=== PATIENT | female | born 1945 | race Caucasian/White ===

== ENCOUNTER → 2023-08-21 06:03 | Outpatient (REF) | payer MEDICARE, OTHER, SELFPAY ==
[2023-08-21 08:55] LABS: % Basophils 0.9 % (0-2); % Eosinophils 5.8 % (0-6); % Immature Granulocytes 0.9 % (0-0.5); % Monocytes 9.2 % (1.7-9.3); % Neutrophils 53.2 % (42.2-75.2); Absolute Eosinophils 0.3 10^3/uL (0-0.7); Absolute Lymphocytes 1.3 10^3/uL (1.2-3.4); Absolute Monocytes 0.4 10^3/uL (0.1-0.6); Absolute Neutrophils 2.3 10^3/uL (1.4-6.5); Hematocrit 34.7 % (37.0-47.0); Hemoglobin 11.4 g/dL (12.0-16.0); Mean Corp Hgb Conc. 32.9 g/dL (33.0-37.0); Mean Corpuscular Hgb 31.2 pg (27.0-31.0); Mean Corpuscular Volume 95.1 fL (81.0-99.0); Mean Platelet Volume 9.4 fL (7.4-10.4); Nucleated Red Blood Cells % 0 %; Platelet Count 221 10^3/uL (130-400); Red Blood Cell Count 3.65 10^6/uL (4.20-5.40); Red Cell Dist. Width 13.2 % (11.5-14.5); White Blood Cell Count 4.3 10^3/uL (4.8-10.8)
[2023-08-21 09:27] LABS: ALT (SGPT) 15 U/L (0-35); AST (SGOT) 23 U/L (14-36); Albumin 4.2 g/dl (3.5-5.0); Alkaline Phosphatase 48 U/L (38-126); Blood Urea Nitrogen 28 mg/dl (7-17); Calcium 9.6 mg/dl (8.4-10.2); Carbon Dioxide 21 mmol/L (22-30); Chloride 111 mmol/L (98-107); Glucose 105 mg/dl (70-99); HDL Cholesterol 67 mg/dl; LDL Cholesterol, Calculated 80 mg/dl; Potassium 4.4 mmol/L (3.5-5.1); Sodium 141 mmol/L (135-145); Total Bilirubin 0.6 mg/dl (0.2-1.3); Total Cholesterol 180 mg/dl (50-199); Triglyceride 168 mg/dl (10-149); Very Low Density Lipoprotein 33 mg/dl (0-30); eGFR 35.67
[2023-08-21 10:11] LABS: Free T3 3.04 pg/ml (2.77-5.27); Free T4 1.24 ng/dl (0.78-2.19)
[2023-08-21 10:25] LABS: TSH 1.15 uIU/ml (0.47-4.68)
[2023-08-21 11:01] LABS: Folate 6.5 ng/ml (2.76-20); Vitamin B12 723 pg/ml (239-931)
[2023-08-21 12:10] LABS: Glycohemoglobin (HgbA1c) 5.8 % (4.0-5.6)
[2023-08-23 13:41] LABS: Albumin 3.89 g/dL (3.75-5.01); Alpha 1 Globulin 0.29 g/dL (0.19-0.46); Alpha 2 Globulin 0.88 g/dL (0.48-1.05); Free Kappa Light Chains,Quant 75.97 mg/L (3.30-19.40); Free Lambda Light Chains,Quant 25.67 mg/L (5.71-26.30); IgA 573 mg/dL (68-408); IgG 660 mg/dL (768-1632); IgM 52 mg/dL (35-263); Immunofixation Electrophoresis IFE Done; Kappa/Lambda Fr Light Ratio 2.96 (0.26-1.65); Monoclonal Protein 0.68 g/dL (<=0.00)
== END ==
LOC: HWLAB 06:03
PROVIDERS: ATTENDING PHYSICIAN Internal Medicine Hematology & Oncology; FAMILY PHYSICIAN Internal Medicine
DX: D63.1 Anemia in chronic kidney disease (principal); N18.30 Chronic kidney disease, stage 3 unspecified; D51.9 Vitamin B12 deficiency anemia, unspecified; D47.2 Monoclonal gammopathy; E78.5 Hyperlipidemia, unspecified; R73.01 Impaired fasting glucose; E03.9 Hypothyroidism, unspecified
CPT/HCPCS: 36415; 80053; 80061; 82607; 82746; 82784; 83036; 83521; 84155; 84165; 84439; 84443; 84481; 85025; 86334

== ENCOUNTER → 2023-10-10 06:33 | Outpatient (REF) | payer MEDICARE, OTHER, SELFPAY ==
[2023-10-10 09:58] LABS: ALT (SGPT) 13 U/L (0-35); AST (SGOT) 21 U/L (14-36); Albumin 3.8 g/dl (3.5-5.0); Alkaline Phosphatase 60 U/L (38-126); Blood Urea Nitrogen 40 mg/dl (7-17); Calcium 9.4 mg/dl (8.4-10.2); Carbon Dioxide 22 mmol/L (22-30); Chloride 108 mmol/L (98-107); Glucose 105 mg/dl (70-99); Potassium 4.4 mmol/L (3.5-5.1); Sodium 139 mmol/L (135-145); Total Bilirubin 0.7 mg/dl (0.2-1.3); Total Protein 6.4 g/dl (6.3-8.2); eGFR 32.81
[2023-10-10 10:11] LABS: Vitamin D, 25-OH*** 64.2 ng/mL (30-80)
== END ==
LOC: HWLAB 06:33
PROVIDERS: ATTENDING PHYSICIAN Internal Medicine Rheumatology; FAMILY PHYSICIAN Internal Medicine
DX: E55.9 Vitamin D deficiency, unspecified (principal); M81.0 Age-related osteoporosis without current pathological fracture; Z79.899 Other long term (current) drug therapy
CPT/HCPCS: 36415; 80053; 82306

== ENCOUNTER → 2023-11-23 11:36 | Outpatient (REF) | payer MEDICARE, OTHER, SELFPAY | LOC: HWRAD 11:36 | PROVIDERS: ATTENDING PHYSICIAN Surgery; FAMILY PHYSICIAN Internal Medicine | DX: K40.90 Unilateral inguinal hernia, without obstruction or gangrene, not specified as recurrent (principal) | CPT/HCPCS: 72192 ==

== ENCOUNTER → 2024-02-08 13:17 | Outpatient (REF) | payer MEDICARE, OTHER, SELFPAY | LOC: HWRAD 13:17 | PROVIDERS: ATTENDING PHYSICIAN Internal Medicine | DX: M79.645 Pain in left finger(s) (principal) | CPT/HCPCS: 73140 ==

== ENCOUNTER → 2024-03-14 12:24 | Outpatient (REF) | payer MEDICARE, OTHER, SELFPAY | LOC: HWRAD 12:24 | PROVIDERS: ATTENDING PHYSICIAN Internal Medicine Rheumatology; FAMILY PHYSICIAN Internal Medicine | DX: M85.89 Other specified disorders of bone density and structure, multiple sites (principal); M81.0 Age-related osteoporosis without current pathological fracture; S32.010S Wedge compression fracture of first lumbar vertebra, sequela; Z13.820 Encounter for screening for osteoporosis | CPT/HCPCS: 77080; 77081 ==

== ENCOUNTER → 2024-04-24 06:09 | Outpatient (REF) | payer MEDICARE, OTHER, SELFPAY ==
[2024-04-24 09:37] LABS: ALT (SGPT) 20 U/L (0-35); AST (SGOT) 25 U/L (14-36); Albumin 4.3 g/dl (3.5-5.0); Alkaline Phosphatase 56 U/L (38-126); Blood Urea Nitrogen 50 mg/dl (7-17); Calcium 8.9 mg/dl (8.4-10.2); Carbon Dioxide 20 mmol/L (22-30); Chloride 106 mmol/L (98-107); Glucose 104 mg/dl (70-99); Potassium 4.4 mmol/L (3.5-5.1); Sodium 141 mmol/L (135-145); Total Bilirubin 0.7 mg/dl (0.2-1.3); Total Protein 7.1 g/dl (6.3-8.2); eGFR 26.69
== END ==
LOC: HWLAB 06:09
PROVIDERS: ATTENDING PHYSICIAN Internal Medicine Rheumatology; FAMILY PHYSICIAN Internal Medicine
DX: M81.0 Age-related osteoporosis without current pathological fracture (principal); Z79.899 Other long term (current) drug therapy
CPT/HCPCS: 36415; 80053

== ENCOUNTER → 2024-05-09 10:23 | Outpatient (REF) | payer MEDICARE, OTHER, SELFPAY | LOC: HWWDC 10:23 | PROVIDERS: ATTENDING PHYSICIAN Internal Medicine; REFERRING PHYSICIAN Obstetrics & Gynecology | DX: Z12.31 Encounter for screening mammogram for malignant neoplasm of breast (principal) | CPT/HCPCS: 77063; 77067 ==

== ENCOUNTER → 2024-06-27 11:22 | Outpatient (REF) | payer MEDICARE, OTHER, SELFPAY | LOC: SDSPAT 11:22 | PROVIDERS: ATTENDING PHYSICIAN Surgery; FAMILY PHYSICIAN Internal Medicine | DX: K41.20 Bilateral femoral hernia, without obstruction or gangrene, not specified as recurrent (principal) | CPT/HCPCS: 36415; 93005 ==

== ENCOUNTER 2024-07-11 06:18 | Day surgery (SDC) | payer MEDICARE, OTHER, SELFPAY ==
[2024-06-27 14:22] VITALS: BMI 19.2
--- NOTE | 2024-06-28 15:17 | PTCARENOTE ---
Abnormal EKG. Dr. De Luna aware. No intervention required.
[2024-07-11] VITALS (12 sets, daily range): BP systolic 136–176; BP diastolic 62–84; BMI 19.2
[2024-07-11] MEDS: TYLENOL 1000 MG PO (11:12)
[2024-07-11] MEDS: NORMOSOL-R/PLASMALYTE-A 1000 IV (11:13)
--- NOTE | 2024-07-11 11:21 | W.SUR.PREOP ---
Pre-Operative Surgical Note
-
I have examined this patient prior to the performance of the scheduled procedure.
The patient's condition is unchanged from the time of the current History and
Physical and the patient is able to undergo the scheduled procedure.
--- NOTE | 2024-07-11 11:21 | HP.FOC2 ---
Focused History & Physical
Chief Complaint
HPI:
Chief Complaint: Bilateral femoral hernias
HPI / Indication for Planned Procedure: This is a 78-year-old female with bilateral femoral hernias, will plan for robotic bilateral femoral hernia repair with mesh.
Relevant Past Medical History: Negative
Relevant Social History: Negative
Relevant Family History: Negative
Relevant Past Surgical History: Positive for ()
Review of Systems
Review of Pertinent Systems: All Systems Negative
Medication
See Medication form for detailed medications: Yes
Medication List (including Herbals & OTC):
atenolol 25 mg tablet 25 mg PO DAILY 07/21/11
cholecalciferol (vitamin D3) 25 mcg (1,000 unit) tablet 1,000 unit PO DAILY 07/21/11
losartan 50 mg tablet 25 mg PO DAILY 07/21/11
simvastatin 10 mg tablet 10 mg PO DAILY 07/21/11
levothyroxine 175 mcg tablet 175 mcg PO DAILY 07/22/11
Calcium 600 mg PO DAILY 09/05/14
amlodipine 2.5 mg tablet 2.5 mg PO DAILY 09/05/14
acetaminophen 325 mg tablet (Tylenol) 650 mg PO Q4H PRN pain 07/04/24
amlodipine 5 mg tablet 5 mg PO DAILY 07/04/24
cyanocobalamin (vitamin B-12) 1,000 mcg tablet 1,000 mcg PO DAILY 07/04/24
denosumab 60 mg/mL subcutaneous syringe (Prolia) 60 mg SC [id number] 07/04/24
fluticasone 100 mcg-salmeterol 50 mcg/dose blistr powdr for inhalation (Advair Diskus) 1 inh inhalation BID 07/04/24
ibuprofen 200 mg tablet 400 mg PO Q4H PRN pain 07/04/24
zolpidem 5 mg tablet (Ambien) 5 mg PO HS PRN sleep 07/04/24
Medications Reviewed: Yes
Allergies and Reactions
Patient has Allergies: No
Noted Allergies and Reactions:
Allergy/AdvReac Type Severity Reaction Status Date / Time
No Known Allergies Allergy Verified 07/11/24 10:57
Pertinent Physical Exam
All Other Systems: Negative
Head/Neck: Normal
Diagnosis / Assessment
This is a 78-year-old female with bilateral femoral hernias
Plan / Procedure
will plan for robotic bilateral femoral hernia repair with mesh.
Anesthesia/Sedation to be done by Anesthesia Provider: Yes
[2024-07-11] MEDS: DILAUDID 0.25 MG IV (14:26)
--- NOTE | 2024-07-11 15:09 | W.IMMPOSTOP ---
Surgical Immed Post Op Note
-
Primary Surgeon: Victor M Aceves MD
Assisting Surgeon: None
Pre-op Diagnosis: Bilateral femoral hernias
Post-op Diagnosis: Same
Procedure Performed: Robotic bilateral femoral hernia repair with mesh
Anesthesia Type: General
Specimen / Cultures: None
Estimated Blood Loss: 7 cc
Complications: None
Operative Findings: Small bilateral femoral hernias containing fat. A large rush mortise was identified and preserved in the right femoral space. After achieving the critical view of the MPO bilaterally, both spaces were reinforced with large 3D
max mid weight uncoated polypropylene mesh.
--- NOTE | 2024-07-11 15:26 | OR.RPT ---
Operative Report
Operative Report
Patient Name: Kristi Cowan
: 1945
Date of Operation: 07/11/2024
Preoperative Diagnosis: Bilateral femoral hernias
Postoperative Diagnosis: Same
Procedure(s):
Robotic bilateral femoral hernia repair with mesh (CARRIE approach)
Surgeon(s):
Dr. Aceves
Bed Laborer(s):
ELISSA Flanagan
Anesthesia: General
Estimated Blood Loss: 7 cc
Urine Output: None
Drains/Lines/Implants: Large 3D Max Bard mid weight uncoated polypropylene mesh x2
Specimens: None
Indication for surgery: The patient has a history of groin pain and noted on exam to have bilateral femoral Hernia. Following review of therapeutic options they have elected to undergo a minimally invasive repair.
Operative Findings: Small bilateral femoral hernias containing fat. 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 After achieving the critical view of the MPO bilaterally, both spaces were reinforced
with large 3D max mid weight uncoated polypropylene mesh.
Details of the operation:
The patient was brought to the Operating Room and placed in the supine position with the arms tucked. IV antibiotics were infused and Venodyne stockings placed. Following uneventful induction of general endotracheal anesthesia, an orogastric tube
was placed. The abdomen was prepped and draped in the usual sterile fashion. The abdomen was entered using a Veress technique which required 1 pass, pneumoperitoneum to 15 mmHg was obtained without difficulty. An 8mm trochar was passed through the
abdominal wall roughly 20 cm cephalad to the inguinal canal. We then confirmed that no inadvertent injury was made while passing the trocar or Veress needle. We then placed two additional 8 mm ports in the left upper and right upper quadrants. We
then docked the robot with a Prograsper in the left hand port and monopolar scissors in the right. Bilateral femoral hernias were readily apparent. There was a single adhesion from the omentum up to her prior Pfannenstiel incision which was lysed
with electrocautery and sharp dissection. We then began on the patient's right side by creating a flap at the level of the ASIS laterally working our way medially to the medial umbilical fold. Staying onto the peritoneum we were able to
circumferentially dissect around the hernia sac and and peel it off of the underlying structures. The round ligament was diminutive and divided. Medially we identified the midline pubis as well as Kirill's ligament and ensured to dissect 2 cm
below the pubic rim over the bladder. After exposure of the entire myopectineal orifice we identified and reduced: A small femoral hernia containing preperitoneal fat. An aberrant obturator artery and vein were identified running in this space
over the pubic brim and diving down to the tank house operator helper canal. These vessels were preserved. No other hernia defects were identified in this area. We then performed the exact same dissection on the contralateral side. Here we again found a small
femoral hernia containing preperitoneal fat. No accessory artery or vein was identified. No other hernia defects were identified either. The round ligament on the left side was a little more robust but divided with electrocautery.
We then fixated a large 3D max mesh with a 2-0 Vicryl stitch at coopers medially and superior laterally. The flap was then closed with a running 2-0 barbed monocryl suture ensuring that the tail was cut flush with the medial fat pad so that no
barbs were exposed. During the closure of the flap an Angiocath was inserted under visualization. The area in the flap cavity was then evacuated of air confirming that the mesh was flush and there were no folds. A small rent in the peritoneum was
noted and closed with 2-0 Vicryl. All needles and instruments were then removed and the robot was undocked. The abdomen was then desufflated, and pneumoperitoneum evacuated. All skin sites were then closed with 4-0 Monocryl followed by Dermabond.
Counts were correct and overall, the patient tolerated the procedure well and was taken to the Recovery Room postoperatively in stable condition.
I was the attending physician and performed the procedure with assistance of the PA above. The assistance of ELISSA Flanagan was required due to the complexity of the procedure. During the procedure Kimberly assisted with port placement, instrument
and needle exchanges, and closure of the wound. I was present for all portions of the case, excluding skin closure.
Victor M Aceves MD
== END 2024-07-11 16:20 | disposition home or self-care (01) ==
LOC: SDS 06:18
PROVIDERS: ATTENDING PHYSICIAN Surgery; FAMILY PHYSICIAN Internal Medicine
DX: K41.20 Bilateral femoral hernia, without obstruction or gangrene, not specified as recurrent (principal)
CPT/HCPCS: 49550; C1781

== ENCOUNTER → 2024-08-20 06:01 | Outpatient (REF) | payer MEDICARE, OTHER, SELFPAY ==
[2024-08-20 10:08] LABS: % Basophils 0.8 % (0-2); % Eosinophils 8.2 % (0-6); % Lymphocytes 32.9 % (20.5-51.1); % Monocytes 8.9 % (1.7-9.3); % Neutrophils 49.2 % (42.2-75.2); Absolute Eosinophils 0.4 10^3/uL (0-0.7); Absolute Lymphocytes 1.6 10^3/uL (1.2-3.4); Absolute Monocytes 0.4 10^3/uL (0.1-0.6); Absolute Neutrophils 2.3 10^3/uL (1.4-6.5); Hematocrit 32.3 % (37.0-47.0); Hemoglobin 10.5 g/dL (12.0-16.0); Mean Corp Hgb Conc. 32.5 g/dL (33.0-37.0); Mean Corpuscular Hgb 32.4 pg (27.0-31.0); Mean Corpuscular Volume 99.7 fL (81.0-99.0); Mean Platelet Volume 10.1 fL (7.4-10.4); Nucleated Red Blood Cells % 0 %; Platelet Count 241 10^3/uL (130-400); Red Blood Cell Count 3.24 10^6/uL (4.20-5.40); Red Cell Dist. Width 12.9 % (11.5-14.5); White Blood Cell Count 4.7 10^3/uL (4.8-10.8)
[2024-08-20 10:27] LABS: ALT (SGPT) 18 U/L (0-35); AST (SGOT) 24 U/L (14-36); Albumin 4.1 g/dl (3.5-5.0); Alkaline Phosphatase 52 U/L (38-126); Blood Urea Nitrogen 36 mg/dl (7-17); Calcium 9.2 mg/dl (8.4-10.2); Carbon Dioxide 19 mmol/L (22-30); Chloride 114 mmol/L (98-107); Glucose 102 mg/dl (70-99); HDL Cholesterol 50 mg/dl; LDL Cholesterol, Calculated 84 mg/dl; Potassium 4.3 mmol/L (3.5-5.1); Sodium 142 mmol/L (135-145); Total Bilirubin 0.6 mg/dl (0.2-1.3); Total Cholesterol 168 mg/dl (50-199); Total Protein 6.7 g/dl (6.3-8.2); Triglyceride 173 mg/dl (10-149); Very Low Density Lipoprotein 34 mg/dl (0-30); eGFR 35.45
[2024-08-20 11:16] LABS: Glycohemoglobin (HgbA1c) 5.4 % (4.0-5.6)
[2024-08-20 11:24] LABS: Folate 7.4 ng/ml (2.76-20); Vitamin B12 646 pg/ml (239-931)
== END ==
LOC: HWLAB 06:01
PROVIDERS: ATTENDING PHYSICIAN Internal Medicine Hematology & Oncology; FAMILY PHYSICIAN Internal Medicine
DX: E78.5 Hyperlipidemia, unspecified (principal); R73.01 Impaired fasting glucose; D63.1 Anemia in chronic kidney disease; N18.30 Chronic kidney disease, stage 3 unspecified; D51.9 Vitamin B12 deficiency anemia, unspecified; D47.2 Monoclonal gammopathy
CPT/HCPCS: 36415; 80053; 80061; 82607; 82746; 82784; 83036; 83521; 84155; 84165; 85025; 86334

== ENCOUNTER → 2024-09-11 11:23 | Outpatient (REF) | payer MEDICARE, OTHER, SELFPAY ==
[2024-09-11 16:33] LABS: Free T3 2.97 pg/ml (2.77-5.27); Free T4 1.28 ng/dl (0.78-2.19)
[2024-09-11 16:47] LABS: TSH 2.03 uIU/ml (0.47-4.68)
== END ==
LOC: HWLAB 11:23
PROVIDERS: ATTENDING PHYSICIAN Internal Medicine
DX: E03.9 Hypothyroidism, unspecified (principal)
CPT/HCPCS: 36415; 84439; 84443; 84481

== ENCOUNTER → 2024-10-30 07:22 | Outpatient (REF) | payer MEDICARE, OTHER, SELFPAY ==
[2024-10-30 10:11] LABS: ALT (SGPT) 12 U/L (0-35); AST (SGOT) 18 U/L (14-36); Albumin 4.1 g/dl (3.5-5.0); Alkaline Phosphatase 49 U/L (38-126); Blood Urea Nitrogen 44 mg/dl (7-17); Calcium 9.4 mg/dl (8.4-10.2); Carbon Dioxide 21 mmol/L (22-30); Chloride 113 mmol/L (98-107); Glucose 97 mg/dl (70-99); Potassium 4.5 mmol/L (3.5-5.1); Sodium 143 mmol/L (135-145); Total Protein 6.8 g/dl (6.3-8.2); eGFR 32.60
[2024-10-30 10:25] LABS: Vitamin D, 25-OH*** 70.7 ng/mL (30-80)
== END ==
LOC: HWLAB 07:22
PROVIDERS: ATTENDING PHYSICIAN Internal Medicine Rheumatology; FAMILY PHYSICIAN Internal Medicine
DX: E55.9 Vitamin D deficiency, unspecified (principal); M81.0 Age-related osteoporosis without current pathological fracture; Z79.899 Other long term (current) drug therapy
CPT/HCPCS: 36415; 80053; 82306